=== PATIENT | female | born 1990 | race Two or more races ===

== ENCOUNTER 2020-01-01 02:18 | Emergency (ER) | payer OTHER ==
[~2020-01-01] VITALS: Ht 157.5 cm; Wt 66.2 kg
[2020-01-01] MEDS ORDERED: FLUCONAZOLE150 MG PO (03:39)
[2020-01-01] MEDS ORDERED: MONISTAT 31 EACH VAG (03:39)
== END 2020-01-01 03:46 ==
LOC: ER 02:18
DX: B37.3 Candidiasis of vulva and vagina (principal)